=== PATIENT | female | born 1995 | race Caucasian/White ===

== ENCOUNTER 2019-09-17 11:46 | Outpatient (CLI) | payer BC ==
[2019-09-17 13:29] VITALS: BP 123/62; PULSE 84; RESP 16; TEMP 97.8
--- NOTE | 2019-10-21 11:23 | P.MSEPDOC ---
Presenting Problems - Arrival Data Date of Arrival on Unit: 09/17/19 Time of Arrival on Unit: 11:46 Mode of Transport: Ambulatory - Complaint OB-Reason for Admission/Chief Complaint: Other Comment: Back pain Medical History - Information : 1 Para: 0 Term: 0 : 0 Abortions: Spontaneous or Elective: 0 Number of Living Children: 0 - Gestational Age Gestational Age by GIRISH (wks/days): 36 Weeks and 3 Days Review of Systems - Review of Systems Constitutional: No problems Breast: No problems ENT: No problems Cardiovascular: No problems Respiratory: No problems Gastrointestinal: No problems Genitourinary: No problems Musculoskeletal: No problems Neurological: No problems Skin: No problems Vital Signs - Temperature Temperature: 97.8 F Temperature Source: Temporal Artery Scan - Pulse Pulse Oximetery Pulse Rate: 84 Pulse Assessment Method: Pulse Oximetry - Respirations Respiratory Rate: 16 Oxygen Delivery Method: Room Air - Blood Pressure Right Arm Blood Pressure: 123/62 Blood Pressure Mean: 82 Blood Pressure Source: Automatic Cuff Medical Screen Scoring (Pre) - Cervical Exam Dilation: 4-7 cm = 2 Effacement: More than 50% = 2 Membranes: Intact - Uterine Contractions Frequency: N/A Duration: N/A Intensity: N/A - Maternal Vital Signs Maternal Temperature: N/A Maternal Blood Pressure: N/A Signs of Preeclampsia: N/A Maternal Respirations: N/A - Maternal Trauma Maternal Trauma: N/A - Assessment - Baby A Baseline FHR: 145 Heart Rate - NICHD Category: Category I (Normal) = 0 NST: Reactive Position: N/A Station: N/A - Total Score - Baby A Total Score - Baby A: 4 - Total Score - Baby B Total Score - Baby B: 4 - Total Score - Baby C Total Score - Baby C: 4 - Level of Risk - Baby A Level of Risk - Baby A: Low (0-5) - Level of Risk - Baby B Level of Risk - Baby B: Low (0-5) - Level of Risk - Baby C Level of Risk - Baby C: Low (0-5) Physician Notification (Pre) - Physician Notified Physician Notified Date: 09/17/19 Physician Notified Time: 13:15 New Order Received: Yes - Notification Comment Comment: Dr. Jeff calling [facility] back. Report given on maternal and status,. complaints of back pain and cramping, uterine irritability but no contractions graphing. NST reactive. Pt is not super uncomfortable. BP and pulse WNL. Orders to discharge home. and to follow up next week for her scheduled appointment. Disposition - Disposition OB Disposition: Physician follow up in office, Discharge to home Discharge Date: 09/17/19 Discharge Time: 13:20 I agree with the RN Medical Screening Exam: Yes Risk & Benefit of care provided described in d/c instruction: Yes Diagnosis: FALSE LABOR BEFORE 37 COMPLETED WEEKS OF GEST, THIRD TRI
== END 2019-09-17 13:20 | disposition home or self-care (01) ==
LOC: FBPOP 11:46
PROVIDERS: ATTEND Obstetrics & Gynecology
DX: O47.03 False labor before 37 completed weeks of gestation, third trimester (principal); Z3A.36 36 weeks gestation of pregnancy
CPT/HCPCS: 59025; 99213

== ENCOUNTER 2019-09-25 22:52 | Inpatient (IN) | payer BC, OTHER ==
[2019-09-25] MEDS ORDERED: METHYLERGONOVINE 0.2 MG/ML 1 ML AMP IM PRN (23:28)
[2019-09-25] MEDS ORDERED: CARBOPROST TROMETHAMINE 250 MCG/ML 1 ML AMP IM PRN (23:28)
[2019-09-25] MEDS ORDERED: TERBUTALINE 1 MG/ML VIAL SQ PRN (23:28)
[2019-09-25] MEDS ORDERED: LIDOCAINE 0.5% (PF) 5 MG/ML (50 ML SDV) SQ PRN (23:28)
[2019-09-25] MEDS ORDERED: OXYTOCIN 10 UNIT/ML 1 ML VIAL IM PRN (23:28)
[2019-09-26] MEDS ORDERED: OXYTOCIN 30 UNITS/500 ML NS 30 UNIT in SALINE 1 500ML.BAG IV SCH (06:00)
[2019-09-26 06:21] LABS: Anisocytosis Slight; Basophils % (A) 0 %; Eosinophils # (A) 0.1 k/uL (0-0.7); Eosinophils % (A) 1 %; HCT 34.9 % (34.0-46.0); HGB 11.2 gm/dL (11.4-16.0); Hypochromasia Slight; Lymphocytes # (A) 1.9 k/uL (1.0-4.8); Lymphocytes % (A) 18 %; MCHC 32.2 g/dL (31.0-37.0); Mean Platelet Volume 10.6; Monocytes # (A) 0.6 k/uL (0-1.0); Monocytes % (A) 6 %; Neutrophils # (A) 7.9 k/uL (1.3-7.7); Neutrophils % (A) 74 %; Platelet Count 214 k/uL (150-450); Poikilocytosis Slight; RBC 4.16 m/uL (3.80-5.40); RDW 18.4 % (11.5-15.5); WBC 10.6 k/uL (3.8-10.6)
[2019-09-26] MEDS: LACTATED RINGERS 1,000 ML IV SCH ×2 (06:27→08:39)
[2019-09-26] MEDS: BUTORPHANOL 1 MG/ML 1 ML VIAL IV PRN ×2 (08:38→12:52)
--- NOTE | 2019-09-26 08:51 | P.HPOB ---
History of Present Illness H&P Date: 09/26/19 Chief Complaint: Uterine contractions. This is a 23-year-old white female 1 para 0 EDC 10/12/2019 37-5/7 weeks' gestation. Patient was checked in the office yesterday and noted to be 7 cm dilated. She was scheduled for induction this morning for advanced cervical di latation, but presented through the night with uterine contractions at home. Fetus is been active throughout the . She denied fluid leakage or vaginal bleeding. history is significant for blood type A+, rubella status immune. Group B strep cultures negative. Gonorrhea and chlamydia cultures, HIV testing, hepatitis B surface antigen, urine culture all negative. Rubella status immune. One-hour Glucola within normal limits. Large for gestational age fetus is noted per recent ultrasound, measurements greater than 95th percentile. Past medical history significant for atrial tachycardia and anxiety. Past surgical history right and left knee arthroscopies with meniscus repair. Current medications vitamins daily. ALLERGIES none known. Social history patient has never been a smoker, she is single, father of the baby is involved. She is a production supervisor off shift. She denies alcohol or drug use. Family history significant for diabetes and benign ovarian tumor. On exam patient is 5 foot 7 inches, 281 pounds, blood pressure 124/81, pulse 92. Patient is afebrile. General physical exam is within normal limits. Extremities reveal +1 edema. Chest is clear in all higgins. Cervix is 8 cm dilated, 90% effaced, -2 station, vertex presentation. Artificial amniorrhexis reveals clear fluid. heart rate is consistent with reactive NST. Uterine contractions are occurring approximately every 6 minutes apart of mild to moderate intensity. Impression: 37-5/7 weeks intrauterine , large for gestational age fetus, active spontaneous labor. All signs reassuring. Plan: Continue close maternal and surveillance. Oxytocin augmentation if needed. Anticipate normal spontaneous vaginal delivery. Review of Systems Constitutional: Reports as per HPI Past Medical History Past Medical History: No Reported History History of Any Multi-Drug Resistant Organisms: None Reported Additional Past Surgical History / Comment(s): wisdom teeth removed, knee surgery x3 Past Anesthesia/Blood Transfusion Reactions: No Reported Reaction Past Psychological History: No Psychological Hx Reported, Anxiety Smoking Status: Never smoker - Past Family History Father Family Medical History: Asthma Medications and Allergies Home Medications Medication Instructions Recorded Confirmed Type Pnv No.95/Ferrous Fum/Folic AC 1 tab PO DAILY 09/25/19 09/25/19 History [ Multivitamin Tablet] Allergies Allergy/AdvReac Type Severity Reaction Status Date / Time No Known Allergies Allergy Verified 09/25/19 22:57 Exam Vital Signs Temp Pulse Resp BP Pulse Ox 09/25/19 23:32 96.6 F L 92 18 124/81 98 09/25/19 22:58 96.6 F L 92 18 124/81 98 Intake and Output 09/25/19 09/26/19 09/26/19 22:59 06:59 14:59 Other: # Voids 1 Weight 127.459 kg 127.459 kg See dictation under HPI. Results Result Diagrams: 09/26/19 05:50 Abnormal Lab Results - Last 24 Hours (Table) 09/26/19 Range/Units 05:50 Hgb 11.2 L (11.4-16.0) gm/dL RDW 18.4 H (11.5-15.5) % Neutrophils # 7.9 H (1.3-7.7) k/uL Assessment and Plan Assessment: 37-5/7 weeks intrauterine , known large for gestational age fetus, in active spontaneous labor. Plan: Continue close maternal and surveillance. Oxytocin augmentation as needed. Anticipate normal spontaneous vaginal delivery. Time with Patient: Less than 30
[2019-09-26] MEDS ORDERED: diphenhydrAMINE 25 MG CAP PO PRN (12:47)
[2019-09-26] MEDS ORDERED: BENZOCAINE/MENTHOL SPRAY 1 GM/SPRAY AEROSOL TOPICAL PRN (12:47)
[2019-09-26] MEDS ORDERED: ACETAMINOPHEN TAB 325 MG TAB PO PRN (12:47)
[2019-09-26] MEDS ORDERED: diphenhydrAMINE 50 MG CAP PO PRN (12:47)
[2019-09-26] MEDS ORDERED: ZOLPIDEM 5 MG TAB PO PRN (12:47)
[2019-09-26] MEDS ORDERED: SIMETHICONE 80 MG CHEWABLE PO PRN (12:47)
[2019-09-26] MEDS ORDERED: HYDROcodone/APAP 7.5-325MG 1 EACH TAB PO PRN (12:47)
[2019-09-26] MEDS ORDERED: diphenhydrAMINE ELIXIR 25 MG/10 ML CUP PO PRN (12:47)
[2019-09-26] MEDS ORDERED: HYDROCORTISONE 2.5% RECTAL CREAM 30 GM TUBE RECTAL PRN (12:47)
[2019-09-26] MEDS ORDERED: LANOLIN CREAM 5 GM TUBE TOPICAL PRN (12:47)
[2019-09-26] MEDS ORDERED: diphenhydrAMINE 50 MG/ML 1 ML VIAL IVP PRN ×2 (12:47)
--- NOTE | 2019-09-26 12:47 | P.PROBDLV ---
Vaginal Delivery Note - . Vaginal Delivery Note: This is a 23-year-old white female 1 para 0 EDC 10/12/2019 at 37-5/7 weeks' g estation. Patient was noted to be 7 cm in the office yesterday. We discussed induction today, however. She presented through the night with regular uterine contractions. Fetus is been active throughout the . Blood type A+, rubella status immune, group B strep cultures negative. Please see dictated history and physical for details. Artificial amniorrhexis revealed clear fluid. Oxytocin was started and titrated per hospital protocol. Patient progressed well through the first stage of labor and became completely dilated at 10 AM. She pushed in the second stage for 2 hours and 15 minutes. Ultimately the perineal body was prepped and draped in the usual sterile fashion. 's head delivered occiput anterior and he restituted accordingly. There was a fair amount of It. There was no nuchal cord noted. The right shoulder was delivered from underneath the pubic symphysis at which time the oropharynx, nasopharynx, and external nares were bulb suctioned on the perineal body. Patient was officially delivered of a liveborn male at 1215 hrs. The umbilical cord was doubly clamped and ligated, he was handed to waiting nurses for evaluation where scores of 8 and 9 at one and 5 minutes respectively were given. Placenta delivered spontaneously, it was inspected and noted to be intact with trivascular cord at 1217 hrs. Uterus is then massaged. Careful inspection of cervix, vagina, perineum, periurethral, and perirectal areas revealed a small second-degree midline perineal laceration. This was injected with lidocaine, and repaired in the usual fashion using 3-0 Vicryl suture. There was a fair amount of vaginal bleeding, this was addressed with a single IM dose of Methergine. Uterus is firm and midline, approximately 16-18 week size. All sponge needle and enhancement counts are correct at the end of the procedure. Infant weighs 9 lbs. 0 oz. or 4090 g. Patient is requesting circumcision for her son.
[2019-09-26] MEDS ORDERED: OXYTOCIN 20 UNITS/1000 ML NS 1,000 ML IV SCH (13:00)
[2019-09-26] MEDS: IBUPROFEN 600 MG TAB PO PRN (15:16)
[2019-09-26 18:22] LABS: Anisocytosis Slight; Basophils % (A) 0 %; Eosinophils % (A) 0 %; HCT 31.4 % (34.0-46.0); HGB 9.9 gm/dL (11.4-16.0); Hypochromasia Slight; Lymphocytes # (A) 1.2 k/uL (1.0-4.8); Lymphocytes % (A) 6 %; MCH 26.9 pg (25.0-35.0); MCHC 31.7 g/dL (31.0-37.0); MCV 84.8 fL (80.0-100.0); Mean Platelet Volume 10.6; Monocytes # (A) 0.8 k/uL (0-1.0); Monocytes % (A) 4 %; Neutrophils # (A) 19.2 k/uL (1.3-7.7); Neutrophils % (A) 90 %; Platelet Count 223 k/uL (150-450); Poikilocytosis Slight; RDW 18.6 % (11.5-15.5); WBC 21.3 k/uL (3.8-10.6)
[2019-09-26] MEDS: SENNOSIDES-DOCUSATE SODIUM 1 EACH TAB PO SCH (19:38)
[2019-09-26] MEDS ORDERED: SENNA LEAF EXTRACT SYRUP 528 MG/15 ML CUP PO PRN (20:00)
[2019-09-27] MEDS: IBUPROFEN 600 MG TAB PO PRN ×2 (04:22→17:07)
[2019-09-27] MEDS: SENNOSIDES-DOCUSATE SODIUM 1 EACH TAB PO SCH ×2 (09:20→19:49)
--- NOTE | 2019-09-27 09:46 | P.PN ---
Subjective Progress Note Date: 09/27/19 Principal diagnosis: day #1 Slept well. Still quite tired. Minimal to moderate lochia rubra. Objective - Vital Signs Vital signs: Vital Signs Temp 98.6 F 09/27/19 04:00 Pulse 110 H 09/27/19 04:00 Resp 16 09/27/19 04:00 BP 121/78 09/27/19 04:00 Pulse Ox 97 09/27/19 04:00 Intake & Output 09/26/19 09/27/19 09/27/19 18:59 06:59 18:59 Intake Total 480 Balance 480 Intake: Oral 480 Other: # Voids 1 1 # Bowel Movements 1 - Constitutional General appearance: Present: average body habitus, cooperative - EENT Eyes: Present: PERRLA ENT: Present: hearing grossly normal - Neck Neck: Present: normal ROM - Respiratory Respiratory: bilateral: CTA - Cardiovascular Rhythm: regular - Gastrointestinal General gastrointestinal: Present: normal bowel sounds - Integumentary Integumentary: Present: normal - Neurologic Neurologic: Present: CNII-XII intact - Musculoskeletal Musculoskeletal: Present: gait normal, generalized weakness - Psychiatric Psychiatric: Present: A&O x's 3, appropriate affect, intact judgment & insight - Labs CBC & Chem 7: 09/26/19 17:57 Labs: Abnormal Lab Results - Last 24 Hours (Table) 09/26/19 Range/Units 17:57 WBC 21.3 H (3.8-10.6) k/uL RBC 3.70 L (3.80-5.40) m/uL Hgb 9.9 L (11.4-16.0) gm/dL Hct 31.4 L (34.0-46.0) % RDW 18.6 H (11.5-15.5) % Neutrophils # 19.2 H (1.3-7.7) k/uL Assessment and Plan Assessment: Doing well post day number 1 Plan: Continue care. Likely discharge home tomorrow. Time with Patient: Less than 30
[2019-09-27 09:56] VITALS: RESP 18
--- NOTE | 2019-09-28 07:55 | P.DS ---
Providers Date of admission: 09/25/19 23:28 Expected date of discharge: 09/28/19 Attending physician: Judie Jeff Primary care physician: Stated None Hospital Course: This is a 23-year-old white female 1 para 0 EDC 10/12/2019 at 37-5/7 weeks' gestation. Patient presented in active labor. Fetus active throughout the , rupee strep cultures negative, blood type B positive, rubella status immune. Please see dictated history and physical for details. Patient went on to deliver vaginally a liveborn male with scores of 8 and 9 at one and 5 minutes respectively. He weighed 9 lbs. 0 oz. or 4090 g. There was a small amount of atony, alleviated by IM Methergine. Estimated blood loss 500 mL's. Second-degree perineal laceration easily repaired. Please see dictated delivery note for details. This morning the patient is doing well. She is voiding, ambulating, passing flatus without difficulty. Vital signs are stable and she is afebrile. Repeat hemoglobin after delivery 9.9. Fundus is firm and in the midline, symmetric and 18 week size. Extremities negative for edema. Breasts are not engorged. Patient is judged to be in good condition for discharge home. She will follow-up with me in the office in 6 weeks. I have reminded her no intercourse, tampons or douching. She will use [id number] Advil or Aleve, or Motrin as needed for pain. She will call with any fevers shakes or chills, foul smelling or copious lochia, with the passage of large blood clots, with any pain not alleviated by [id number] products, or indeed with any concerns. Patient Condition at Discharge: Good Plan - Discharge Summary Discharge Rx Participant: No New Discharge Prescriptions: No Action Pnv No.95/Ferrous Fum/Folic AC [ Multivitamin Tablet] 1 tab PO DAILY Discharge Medication List Pnv No.95/Ferrous Fum/Folic AC [ Multivitamin Tablet] 1 tab PO DAILY 09/25/19 [History] Follow up Appointment(s)/Referral(s): Judie Jeff MD [STAFF PHYSICIAN] - 6 Weeks Discharge Disposition: HOME SELF-CARE
[2019-09-28 11:32] VITALS: BP 112/72; PULSE 99; TEMP 98.2
[2019-09-28] MEDS: SENNOSIDES-DOCUSATE SODIUM 1 EACH TAB PO SCH (11:55)
== END 2019-09-28 13:02 | disposition home or self-care (01) | DRG 807 ==
LOC: FBPOP 22:52 → 4FBP 23:28
PROVIDERS: ADMIT Obstetrics & Gynecology; ATTEND Obstetrics & Gynecology
PROC: 10E0XZZ Delivery of Products of Conception, External Approach (ICD-10-PCS; principal; 2019-09-26)
PROC: 0KQM0ZZ Repair Perineum Muscle, Open Approach (ICD-10-PCS; principal; 2019-09-26)
DX: O36.63X0 Maternal care for excessive fetal growth, third trimester, not applicable or unspecified (principal); Z37.0 Single live birth; O70.1 Second degree perineal laceration during delivery; Z3A.37 37 weeks gestation of pregnancy; Z86.59 Personal history of other mental and behavioral disorders; Z82.5 Family history of asthma and other chronic lower respiratory diseases; Z83.3 Family history of diabetes mellitus
CPT/HCPCS: 59025; 85025; 86850; 86900; 86901; 99213